=== PATIENT | female | born 1965 | race Caucasian/White ===

== ENCOUNTER 2017-06-25 17:08 | Emergency (ER) | payer BC ==
[2017-06-25] MEDS ORDERED: HYDROmorphone INJ* 2 MG/ML CARPUJECT SYRINGE IV SLOW PU ONE (18:39)
[2017-06-25] MEDS ORDERED: methylPREDNISolone 125 MG* 2 ML VIAL IV ONE (18:39)
[2017-06-25] MEDS ORDERED: Ondansetron INJ* 2 MG/ML VIAL IV ONE (18:39)
[2017-06-25] MEDS ORDERED: NS 0.9% 1000 ML* 1,000 ML IV ONE (18:39)
[2017-06-25 19:04] LABS: ABS Basophils 0.1 10^3/ul (0-0.2); ABS Eosinophils 0.2 10^3/ul (0-0.6); ABS Lymphocytes 2.5 10^3/ul (1.0-4.8); ABS Monocytes 0.6 10^3/ul (0-0.8); ABS Neutrophils 5.6 10^3/ul (1.5-7.7); ABS Nucleated RBC 0 10^3/ul; Eosinophil % 2.5 % (0-6); Hematocrit 40 % (35-47); Lymphocyte % 27.8 % (25-47); Mean Corpuscular HGB Conc 35 g/dl (31-36); Mean Corpuscular Hemoglobin 32 pg (27-31); Mean Corpuscular Volume 92 fL (80-97); Mean Platelet Volume 7 um3 (7.4-10.4); Nucleated Red Blood Cells % 0.1; Platelet Count 244 10^3/ul (150-450); Red Blood Count 4.39 10^6/ul (4.0-5.4); Red Cell Distribution Width 13 % (10.5-15); White Blood Count 9.1 10^3/ul (3.5-10.8)
--- NOTE | 2017-06-25 19:05 | ED ---
Headache - HPI Summary HPI Summary: Pt presents today with headache. Pt with PMHX significant for vascular migraines and brain aneurysm with repair in 2012. Pt states today she began to have headache with nausea. Pt states pain has improved to 6/10 without intervention. - History Of Current Complaint Chief Complaint: EDHeadache Stated Complaint: HEADACHE Time Seen by Provider: 06/25/17 18:17 Hx Obtained From: Patient Onset/Duration: Gradual Onset Initially Headache Was: Initial Pain Scale(0-10)= - 10, Severe Currently Pain Is: Current Pain Scale(0-10)= - 6, Moderate Timing: Constant Character: Sharp Location of Headache: Frontal Radiates to: right side of neck Aggravating Factor: Nothing, Bright Lights Allevating Factors: Nothing Associated Signs And Symptoms: Nausea - Risk Factors SAH Risk Factors: Negative - Allergies/Home Medications Allergies/Adverse Reactions: Allergies Allergy/AdvReac Type Severity Reaction Status Date / Time Ibuprofen Allergy Rash Verified 05/06/16 08:28 Clindamycin AdvReac Unknown Rash Verified 05/06/16 08:28 Erythromycin AdvReac Unknown Rash Verified 05/06/16 08:28 PMH/Surg Hx/FS Hx/Imm Hx Endocrine/Hematology History: Denies: Hx Diabetes, Hx Thyroid Disease Cardiovascular History: Reports: Hx Hypercholesterolemia Denies: Hx Hypertension, Hx Pacemaker/ICD Respiratory History: Denies: Hx Asthma, Hx Chronic Obstructive Pulmonary Disease (COPD) GI History: Denies: Hx Ulcer History: Denies: Hx Renal Disease Musculoskeletal History: Denies: Hx Osteoporosis Sensory History: Reports: Hx Contacts or Glasses - GLASSES, Hx Vision Problem - 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 Denies: Hx Hearing Aid Opthamlomology History: Reports: Hx Contacts or Glasses - GLASSES, Hx Vision Problem - 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 1991,1993,1995 LEFT BREAST LUMPECTOMY, [place]. 1994 LEFT INGUINAL HERNIA REPAIR, [place]. 2000 LAPAROSCOPIC CHOLECYSTECTOMY, [place]. 2001 BILATERAL CARPAL TUNNEL RELEASE, [place]. 2011 BRAIN ANEURYSM REPAIR - TITANIUM COILS BEHIND RIGHT EYE, [facility]. Jun 2015 - LEFT KNEE MENISCUS REPAIR Hx Anesthesia Reactions: Yes - NORMAL LOW B/P /WITH REMA - TOOK VERY LONG TIME TO COME OUT OF ANESTHESIA, Infectious Disease History: No Infectious Disease History: Denies: Hx Hepatitis, Hx Human Immunodeficiency Virus (HIV), Traveled Outside the [place] in Last 30 Days - Family History Known Family History: Positive: Cardiac Disease - Social History Alcohol Use: Weekly Alcohol Amount: 1 GLASS WINE Substance Use Type: Reports: None Smoking Status (MU): Former Smoker Type: Cigarettes Amount Used/How Often: 1 PPD Length of Time of Smoking/Using Tobacco: 15 YEARS Have You Smoked in the Last Year: No Review of Systems Constitutional: Negative Negative: Blurred Vision, Diplopia ENT: Negative Cardiovascular: Negative Respiratory: Negative Negative: Abdominal Pain, Vomiting Negative: Weakness, Paresthesia, Numbness, Syncope Psychological: Normal All Other Systems Reviewed And Are Negative: Yes Physical Exam Triage Information Reviewed: Yes Vital Signs On Initial Exam: Initial Vitals Temp Pulse Resp BP Pulse Ox 37.6 C 101 20 127/76 97 06/25/17 17:33 06/25/17 17:33 06/25/17 17:33 06/25/17 17:33 06/25/17 17:33 Vital Signs Reviewed: Yes Appearance: Positive: Well-Appearing, No Pain Distress Skin: Positive: Warm, Skin Color Reflects Adequate Perfusion Head/Face: Positive: Normal Head/Face Inspection Eyes: Positive: Normal, EOMI, Other: - Fundi normal ENT: Positive: Normal ENT inspection Neck: Positive: Supple, Nontender. Negative: Tenderness @ Respiratory/Lung Sounds: Positive: Clear to Auscultation, Breath Sounds Present Cardiovascular: Positive: Normal, RRR, Pulses are Symmetrical in both Upper and Lower Extremities Abdomen Description: Positive: Nontender Musculoskeletal: Positive: Normal Neurological: Positive: Normal, Sensory/Motor Intact, Alert, Oriented to Person Place, Time, CN Intact II-III, Reflexes Intact Psychiatric: Positive: Normal Diagnostics - Vital Signs Vital Signs Temp Pulse Resp BP Pulse Ox 06/25/17 18:30 73 14 131/71 97 06/25/17 18:28 84 16 96 06/25/17 18:26 129/76 06/25/17 18:25 36.8 C 85 15 129/76 96 06/25/17 17:33 37.6 C 101 20 127/76 97 - Laboratory Result Diagrams: 06/25/17 18:55 06/25/17 18:55 Lab Statement: Any lab studies that have been ordered have been reviewed, and results considered in the medical decision making process. - CT No standard instances CT Interpretation: No Acute Changes CT Interpretation Completed By: ED Physician, Radiologist Re-Evaluation - Re-Evaluation First Eval Re-Evaluation Time: 20:01 Change: Improved Comment: Pt headache resolved with IV analgesia; pt resting comfortably in bed. pt with no acute complaints awaiting CT angio head Second Eval Re-Evaluation Time: 21:25 Change: Improved - Pt headache resolved; Pt repeat CN exam intact II-XII; pt ambulatory without difficulty. pt symptoms most consistent with headache/ migraine. Headache Course/Dx - Diagnoses Differential Diagnosis/HQI/PQRI: CVA, TIA, Epidural Hematoma, Subdural Hematoma , Meningitis, Migraine, Subarachnoid Hemorrhage, Tension Headache, Viral Syndrome Provider Diagnoses: Migraine headache Discharge - Discharge Plan Condition: Improved Disposition: HOME Patient Education Materials: Migraine Headache (ED) Referrals: Sravani Aguilar MD [Primary Care Provider] - Additional Instructions: Please follow up with your Primary Care Provider in 2-3 days. Please return if symptoms worsen or return.
[2017-06-25 19:21] LABS: EGFR Non-African American 73.7 (>60)
[2017-06-25] MEDS ORDERED: Iohexol 350* (CONTRAST) 500 ML MDV IV ONE (20:16)
--- NOTE | 2017-06-25 21:18 | RAD ---
Indication: Headaches. Evaluate for aneurysms. CT of the brain was performed without IV contrast. CTA of the head was then performed. Sagittal and coronal reconstructed images were obtained. Comparison is made with previous exam dated November 22, 2014. Contrast: Administered 60.1 ml of OMNIPAQUE 350 mg/ml Ventricular structures are midline. No midline shift is noted. The extra-axial spaces are unremarkable. Patient is status post right craniotomy prior. No intracranial mass or hemorrhage is noted. The vertebral arteries are unremarkable. Basilar artery and posterior cerebral artery demonstrates no aneurysmal dilatation. The carotid arteries demonstrates no significant stenosis. No evidence of branch occlusion is identified. No aneurysmal dilatation is noted. The patient has had prior clipping of the aneurysm presumably near the right middle cerebral artery. IMPRESSION: Postoperative changes in the right temporal lobe. This is predominantly in the branches of the right middle cerebral artery. No branch occlusion is noted. No other areas of aneurysmal dilatation is identified.
[2017-06-25 21:40] VITALS: BP 104/77
== END 2017-06-25 21:42 | disposition home or self-care (01) ==
LOC: ED 17:08
DX: G43.909 Migraine, unspecified, not intractable, without status migrainosus (principal); Z86.79 Personal history of other diseases of the circulatory system; Z87.891 Personal history of nicotine dependence; Z88.6 Allergy status to analgesic agent; Z88.3 Allergy status to other anti-infective agents
CPT/HCPCS: 36415; 70496; 80053; 85025; 96361; 96374; 96375; 99284; J1170; J2405; J2930; Q9967